=== PATIENT | male | born 1995 | race Caucasian/White ===

== ENCOUNTER → 2018-05-09 | Day surgery (SDC) | payer OTHER ==
[2018-05-06 09:12] VITALS: BMI 17.2
[~2018-05-09] MED LIST: BUPIVACAINE (PF) 0.5% 30 ML VIAL SQ ONE; DEXAMETHASONE SOD PHOS (MDV) 100 MG/10 ML VIAL IVP ONE; HEPARIN SODIUM,PORCINE 5,000 UNIT/ML 1 ML VIAL SQ STA; KETAMINE 10 MG/ML 20 ML VIAL ONE; LACTATED RINGERS 1,000 ML IV SCH; LIDOCAINE 1% 20 ML VIAL (10MG/ML) FOR IV START INTRADERMA PRN; LIDOCAINE 1% INJ 10MG/ML (20 ML MDV) ONE; MIDAZOLAM 2 MG/2 ML VIAL ONE; ONDANSETRON 4 MG/2 ML VIAL IVP ONE; PROPOFOL 10 MG/ML 20 ML VIAL IV ONE; Pre Op ABX Message 1 EACH MISC MISCELLANE ONE; ceFAZolin IN SWFI 2 GM/20 ML SYRINGE IVP STA; fentaNYL (PF) 50 MCG/ML 2 ML AMP ONE
--- NOTE | 2018-05-09 07:47 | P.GSHP ---
History of Present Illness H&P Date: 05/09/18 CHIEF COMPLAINT: Mass along the back HISTORY OF PRESENT ILLNESS: The patient is a 22 year-old male with history of mass along the back. He presents today for surgical excision. PAST MEDICAL HISTORY: Please see list. PAST SURGICAL HISTORY: Please see list. MEDICATIONS: Please see list. ALLERGIES: Please see list. SOCIAL HISTORY: No illicit drug use FAMILY HISTORY: No reports of Crohn disease or ulcerative colitis. REVIEW OF ORGAN SYSTEMS: CONSTITUTIONAL: No reports of fevers or chills. GI: Denies any blood in stools or constipation. PHYSICAL EXAM: VITAL SIGNS: Stable Musculoskeletal: Approximately 5 cm lipoma along the upper back SKIN: Lesion identified along bilateral thighs. GENERAL: Well developed and in no acute distress. Pleasant. HEENT: No sclera icterus. Extraocular movements grossly intact. Moist buccal mucosa. Head is atraumatic, normocephalic. Hears conversational speech. No nasal drainage. NECK: Supple without lymphadenopathy. No JV distention. CHEST: Non-labored respirations and equal bilateral excursions. CARDIOVASCULAR: Regular rate and rhythm. Palpable 2+ radial pulses. ABDOMEN: Soft. Non-tender. Nondistended. NEUROLOGIC: No focal or lateralizing signs. PSYCH: Appropriate affect. Alert and oriented to person, place and time. ASSESSMENT: 1. Right upper back lipoma of 5 cm. PLAN: 1. Excision of the subcutaneous tumor was described. 2. Recovery including limitations of skin stretch of 3 weeks was reviewed. 3. DVT prophylaxis. 4. Antibiotic prophylaxis. Past Medical History Past Medical History: No Reported History History of Any Multi-Drug Resistant Organisms: None Reported Past Surgical History: No Surgical Hx Reported Additional Past Anesthesia/Blood Transfusion Reaction / Comment(s): no anesthesia Smoking Status: Never smoker - Past Family History Mother Family Medical History: No Reported History Medications and Allergies Home Medications Medication Instructions Recorded Confirmed Type No Known Home Medications 10/30/14 05/06/18 History Allergies Allergy/AdvReac Type Severity Reaction Status Date / Time Penicillins AdvReac Rash/Hives Verified 05/06/18 09:46 Sulfa (Sulfonamide AdvReac Rash/Hives Verified 05/06/18 09:46 Antibiotics)
[2018-05-09 08:16] VITALS: RESP 16; TEMP 97.4
--- NOTE | 2018-05-09 09:46 | P.OP ---
Date of Procedure: 05/09/18 Description of Procedure: SURGEON: YAYA LUU MD RISK INTERN: None. PREOPERATIVE DIAGNOSES: 1. Right upper back mass, 5 cm POSTOPERATIVE DIAGNOSES: 1. Right upper back mass, 5 cm, intramuscular PROCEDURES PERFORMED: 1. Excision of right upper back mass, 5 cm, intramuscular 2. Complex closure of 7 cm along the back/trunk ANESTHESIA: IV sedation with 30 mL local. ESTIMATED BLOOD LOSS: 2 mL. SPECIMENS REMOVED: Right upper back mass. COMPLICATIONS: None. INDICATIONS: The patient is a 22-year-old male who presents with right upper back mass. Now he presents for surgical intervention. Benefits and risks of surgical intervention were described including bleeding, infection. Informed consent was obtained. DESCRIPTION OR PROCEDURE: Patient was brought into the operating room, and placed in prone position. After adequate IV sedation, the area was prepped and draped in a standard sterile fashion with ChloraPrep. Timeout protocol was confirmed with the surgical team regarding the patient's name, procedure to be performed including preoperative medications. DVT prophylaxis was confirmed. A field block was placed at the area of the mass. Indelible marker was placed around the cyst of 5 cm. An incision using #15 blade was made along the marking into the dermis and subcutaneous tissue in a transverse fashion. Electro-Bovie cautery was used to excise the lesion into the lumbar muscle. Undermining was performed along for closure. 0 Vicryl for the deep subcutaneous tissue followed by 3-0 Vicryl was placed in interrupted fashion. 4-0 Monocryl in a running subcuticular fashion was placed along the dermis. The skin was cleansed with diluted hydrogen peroxide. Liquid glue and tape and was applied. The incision was covered with Optifoam. A total of 30 mL of local anesthetic was placed. At the end of the procedure, needle, sponge, and instrument count was verified correct by manager surgical. The patient was awoken and taken to the second stage postanesthesia care unit. The patient tolerated the procedure well. FINDINGS: 1. Intramuscular back mass 5 cm Plan - Discharge Summary New Discharge Prescriptions: No Action No Known Home Medications Discharge Medication List No Known Home Medications 10/30/14 [History]
[2018-05-09 10:26] VITALS: BP 127/85; PULSE 73
== END | disposition home or self-care (01) ==
LOC: OR 08:00
PROVIDERS: ATTEND Surgery Plastic and Reconstructive Surgery
DX: R22.2 Localized swelling, mass and lump, trunk (principal); Z88.0 Allergy status to penicillin; Z88.2 Allergy status to sulfonamides
CPT/HCPCS: 88304; 21933; J2250; J1644; J2405; J2001; J3010; J1100; J2704; J0690